=== PATIENT | male | born 2000 | race American Indian/Alaskan Native ===

== ENCOUNTER 2021-10-09 12:13 | Emergency (ER) | payer SELFPAY ==
[2021-10-09 16:45] VITALS: BP 132/74
--- NOTE | 2021-10-09 17:44 | Emergency Department Report ---
ED Chest Pain HPI - General Chief Complaint: Chest Pain Stated Complaint: CHEST PAIN Time Seen by Provider: 10/09/21 17:11 Source: patient Mode of arrival: Ambulatory Limitations: No Limitations - History of Present Illness Initial Comments: Patient is a 21-year-old F Iraqi male with no significant past medical history who is presenting with need for medical clearance secondary to elevated blood pressure. Patient states that he was at work yesterday and on a routine health check his blood pressure was elevated. He does not know the exact number . Patient states he had a mild headache which is now resolved. Does have a family history of hypertension. 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 Pain is worse with movement better while sitting still. Denies cough congestion nausea vomiting diarrhea at this time. Severity scale (0 -10): 0 - Related Data Previous Rx's Medication Instructions Recorded Last Taken Type hydroCHLOROthiazide 12.5 mg PO DAILY #30 10/09/21 Unknown Rx [Hydrochlorothiazide] Allergies Allergy/AdvReac Type Severity Reaction Status Date / Time No Known Allergies Allergy Unverified 10/09/21 16:45 Heart Score - HEART Score History: Slightly suspicious EKG: Normal Age: < 45 Risk factors: No known risk factors Troponin: < normal limit (not proformed) HEART Score: 0 - EKG Read Time Time EKG Completed: 17:35 EKG Read Time: 17:38 ED Review of Systems ROS: Stated complaint: CHEST PAIN Other details as noted in HPI Comment: All other systems reviewed and negative ED Past Medical Hx - Medications Home Medications: Home Medications Medication Instructions Recorded Confirmed Last Taken Type hydroCHLOROthiazide 12.5 mg PO DAILY #30 10/09/21 Unknown Rx [Hydrochlorothiazide] ED Physical Exam - General Limitations: No Limitations General appearance: alert, in no apparent distress - Head Head exam: Present: atraumatic, normocephalic - Eye Eye exam: Present: normal appearance, PERRL, EOMI - ENT ENT exam: Present: mucous membranes moist - Neck Neck exam: Present: normal inspection - Respiratory Respiratory exam: Present: normal lung sounds bilaterally. Absent: respiratory distress, wheezes, rales, rhonchi - Cardiovascular Cardiovascular Exam: Present: regular rate, normal rhythm, normal heart sounds. Absent: systolic murmur, diastolic murmur, rubs, gallop - GI/Abdominal GI/Abdominal exam: Present: soft, normal bowel sounds. Absent: distended, tenderness, guarding, rebound, rigid - Rectal Rectal exam: Present: deferred - Extremities Exam Extremities exam: Present: normal inspection - Back Exam Back exam: Present: normal inspection - Neurological Exam Neurological exam: Present: alert, oriented X3 - Psychiatric Psychiatric exam: Present: normal affect, normal mood - Skin Skin exam: Present: warm, dry, intact, normal color. Absent: rash ED Course Vital Signs 10/09/21 16:44 Pulse Rate 77 Respiratory 16 Rate Blood Pressure 132/74 [Right] O2 Sat by Pulse 99 Oximetry ED Medical Decision Making - EKG Data -: EKG Interpreted by Me EKG shows normal: sinus rhythm, axis, intervals, QRS complexes, ST-T waves Rate: normal - EKG Data Interpretation: normal EKG (@1738) - Medical Decision Making Patient with very atypical chest discomfort likely secondary to musculoskeletal pain. Blood pressure just slightly elevated here in the emergency department. Given clearance to go back to work. Also start the patient on low-dose hydrochlorothiazide. Patient stable for discharge. Critical care attestation.: If time is entered above; I have spent that time in minutes in the direct care of this critically ill patient, excluding procedure time. ED Disposition Clinical Impression: Hypertensive urgency, Musculoskeletal chest pain Disposition: HOME / SELF CARE / HOMELESS Is pt being admited?: No Does the pt Need Aspirin: No Condition: Stable Instructions: Chest Wall Pain, Hypertension, Adult, [id number] Prescriptions: hydroCHLOROthiazide [Hydrochlorothiazide] 12.5 mg PO DAILY #30 Referrals: BARTOLO FOX MD [Staff Physician] - 3-5 Days Time of Disposition: 17:43
--- NOTE | 2021-10-10 10:56 | Electrocardiograph Report ---
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 No previous ECG available for comparison Electronically Signed On 10-10-2021 10:56:02 EST by Juan José Johns
== END 2021-10-09 17:52 | disposition home or self-care (01) ==
LOC: ED 12:13
DX: I16.0 Hypertensive urgency (principal); R07.89 Other chest pain
CPT/HCPCS: 93005; 99282